=== PATIENT | male | born 1975 | race Caucasian/White ===

== ENCOUNTER → 2019-12-19 14:03 | Outpatient (BNVA) | payer MEDICARE, MEDICAID, SELFPAY | PROVIDERS: Family Provider Internal Medicine; PCP Internal Medicine; Visit Provider Nurse Practitioner | DX: F33.1 Major depressive disorder, recurrent, moderate (principal); F43.12 Post-traumatic stress disorder, chronic; F40.11 Social phobia, generalized; F41.9 Anxiety disorder, unspecified; F40.298 Other specified phobia | CPT/HCPCS: 99203 ==

== ENCOUNTER → 2020-02-09 14:45 | Outpatient (BNVA) | payer MEDICARE, MEDICAID, SELFPAY | PROVIDERS: Family Provider Internal Medicine; PCP Internal Medicine; Visit Provider Nurse Practitioner | DX: F33.1 Major depressive disorder, recurrent, moderate (principal); F43.12 Post-traumatic stress disorder, chronic; F40.11 Social phobia, generalized; F41.9 Anxiety disorder, unspecified | CPT/HCPCS: 99213 ==

== ENCOUNTER → 2020-04-05 08:14 | Outpatient (BNVA) | payer MEDICARE, MEDICAID, SELFPAY | PROVIDERS: Family Provider Internal Medicine; PCP Internal Medicine; Visit Provider Nurse Practitioner | DX: F41.9 Anxiety disorder, unspecified (principal); F40.11 Social phobia, generalized; F43.12 Post-traumatic stress disorder, chronic; F33.1 Major depressive disorder, recurrent, moderate | CPT/HCPCS: 99213 ==

== ENCOUNTER → 2020-05-27 07:45 | Outpatient (BNVA) | payer MEDICARE, MEDICAID, SELFPAY | PROVIDERS: Family Provider Internal Medicine; PCP Internal Medicine; Visit Provider Nurse Practitioner | DX: F33.1 Major depressive disorder, recurrent, moderate (principal); F43.12 Post-traumatic stress disorder, chronic; F40.11 Social phobia, generalized; F41.9 Anxiety disorder, unspecified | CPT/HCPCS: 99213 ==

== ENCOUNTER → 2020-06-24 11:19 | Outpatient (BNVA) | payer MEDICARE, MEDICAID, SELFPAY | PROVIDERS: Family Provider Internal Medicine; PCP Internal Medicine; Visit Provider Nurse Practitioner | DX: F33.1 Major depressive disorder, recurrent, moderate (principal); F43.12 Post-traumatic stress disorder, chronic; F40.11 Social phobia, generalized; F41.9 Anxiety disorder, unspecified | CPT/HCPCS: 99213 ==

== ENCOUNTER → 2020-08-26 08:36 | Outpatient (BNVA) | payer MEDICARE, MEDICAID, SELFPAY | PROVIDERS: Family Provider Internal Medicine; PCP Internal Medicine; Visit Provider Nurse Practitioner | DX: F33.1 Major depressive disorder, recurrent, moderate (principal); F43.12 Post-traumatic stress disorder, chronic; F40.11 Social phobia, generalized; F41.9 Anxiety disorder, unspecified | CPT/HCPCS: 99213 ==

== ENCOUNTER → 2020-11-24 07:58 | Outpatient (BNVA) | payer MEDICARE, MEDICAID, SELFPAY | PROVIDERS: Family Provider Internal Medicine; PCP Internal Medicine; Visit Provider Nurse Practitioner | DX: F33.1 Major depressive disorder, recurrent, moderate (principal); F43.12 Post-traumatic stress disorder, chronic; F40.11 Social phobia, generalized | CPT/HCPCS: 99213 ==

== ENCOUNTER → 2021-02-23 08:40 | Outpatient (BNVA) | payer MEDICARE, MEDICAID, SELFPAY | PROVIDERS: Family Provider Internal Medicine; PCP Internal Medicine; Visit Provider Nurse Practitioner | DX: F33.1 Major depressive disorder, recurrent, moderate (principal); F43.12 Post-traumatic stress disorder, chronic; F40.11 Social phobia, generalized | CPT/HCPCS: 99214 ==

== ENCOUNTER → 2021-05-18 07:41 | Outpatient (BNVA) | payer MEDICARE, MEDICAID, SELFPAY | PROVIDERS: Family Provider Internal Medicine; PCP Internal Medicine; Visit Provider Nurse Practitioner | DX: F43.12 Post-traumatic stress disorder, chronic (principal); F33.1 Major depressive disorder, recurrent, moderate; F40.11 Social phobia, generalized | CPT/HCPCS: 99214 ==

== ENCOUNTER → 2021-08-17 07:45 | Outpatient (BNVA) | payer MEDICARE, MEDICAID, SELFPAY | PROVIDERS: Family Provider Internal Medicine; PCP Internal Medicine; Visit Provider Nurse Practitioner | DX: F43.12 Post-traumatic stress disorder, chronic (principal); F33.1 Major depressive disorder, recurrent, moderate; F40.11 Social phobia, generalized | CPT/HCPCS: 99214 ==

== ENCOUNTER → 2021-09-28 07:36 | Outpatient (BNVA) | payer MEDICARE, MEDICAID, SELFPAY | PROVIDERS: Family Provider Internal Medicine; PCP Internal Medicine; Visit Provider Nurse Practitioner | DX: F43.12 Post-traumatic stress disorder, chronic (principal); F33.1 Major depressive disorder, recurrent, moderate; F40.11 Social phobia, generalized | CPT/HCPCS: 99214 ==

== ENCOUNTER → 2021-11-14 14:17 | Outpatient (BNVA) | payer MEDICARE, MEDICAID, SELFPAY | PROVIDERS: Family Provider Internal Medicine; PCP Internal Medicine; Visit Provider Podiatrist Foot & Ankle Surgery | DX: M79.672 Pain in left foot (principal); Z89.422 Acquired absence of other left toe(s); M77.32 Calcaneal spur, left foot; Z46.89 Encounter for fitting and adjustment of other specified devices; L97.529 Non-pressure chronic ulcer of other part of left foot with unspecified severity; E11.621 Type 2 diabetes mellitus with foot ulcer; L97.522 Non-pressure chronic ulcer of other part of left foot with fat layer exposed; E11.42 Type 2 diabetes mellitus with diabetic polyneuropathy | CPT/HCPCS: 73630; 97760; L4361 ==

== ENCOUNTER 2021-11-14 15:48 | Outpatient (CLI) | payer MEDICARE, MEDICAID, SELFPAY | END 2021-11-14 15:49 | disposition home or self-care (01) | LOC: SPT 15:49 | PROVIDERS: Family Provider Internal Medicine; PCP Internal Medicine; Visit Provider Podiatrist Foot & Ankle Surgery | DX: Z46.89 Encounter for fitting and adjustment of other specified devices (principal); L97.529 Non-pressure chronic ulcer of other part of left foot with unspecified severity | CPT/HCPCS: 97760; L4361 ==

== ENCOUNTER → 2021-12-28 07:40 | Outpatient (BNVA) | payer MEDICARE, MEDICAID, SELFPAY | PROVIDERS: Family Provider Internal Medicine; PCP Internal Medicine; Visit Provider Nurse Practitioner | DX: F43.12 Post-traumatic stress disorder, chronic (principal); F33.1 Major depressive disorder, recurrent, moderate; F40.11 Social phobia, generalized | CPT/HCPCS: 99214 ==

== ENCOUNTER → 2022-03-22 07:19 | Outpatient (BNVA) | payer MEDICARE, MEDICAID, SELFPAY | PROVIDERS: Family Provider Internal Medicine; PCP Internal Medicine; Visit Provider Nurse Practitioner | DX: F43.12 Post-traumatic stress disorder, chronic (principal); F33.1 Major depressive disorder, recurrent, moderate; F40.11 Social phobia, generalized | CPT/HCPCS: 99214 ==

== ENCOUNTER → 2022-04-18 13:32 | Outpatient (BNVA) | payer MEDICARE, MEDICAID, SELFPAY | PROVIDERS: Family Provider Internal Medicine; PCP Internal Medicine; Visit Provider Podiatrist Foot & Ankle Surgery | DX: L60.3 Nail dystrophy (principal); L84 Corns and callosities; Q66.71 Congenital pes cavus, right foot; Q66.72 Congenital pes cavus, left foot; E11.42 Type 2 diabetes mellitus with diabetic polyneuropathy | CPT/HCPCS: 11056; 11721 ==

== ENCOUNTER → 2022-06-20 13:31 | Outpatient (BNVA) | payer MEDICARE, MEDICAID, SELFPAY | PROVIDERS: Family Provider Internal Medicine; PCP Internal Medicine; Visit Provider Podiatrist Foot & Ankle Surgery | DX: Q66.70 Congenital pes cavus, unspecified foot (principal); L60.3 Nail dystrophy; L84 Corns and callosities; E11.42 Type 2 diabetes mellitus with diabetic polyneuropathy | CPT/HCPCS: 11056; 11721 ==

== ENCOUNTER → 2022-10-03 10:53 | Outpatient (BNVA) | payer MEDICARE, MEDICAID, SELFPAY | PROVIDERS: Family Provider Internal Medicine; PCP Internal Medicine; Visit Provider Podiatrist Foot & Ankle Surgery | DX: E11.42 Type 2 diabetes mellitus with diabetic polyneuropathy (principal); L60.3 Nail dystrophy; L84 Corns and callosities; Z79.84 Long term (current) use of oral hypoglycemic drugs; Z79.4 Long term (current) use of insulin; M21.179 Varus deformity, not elsewhere classified, unspecified ankle | CPT/HCPCS: 11056; 11721 ==

== ENCOUNTER → 2022-11-21 13:08 | Outpatient (BNVA) | payer MEDICARE, MEDICAID, SELFPAY | PROVIDERS: Family Provider Internal Medicine; PCP Internal Medicine; Visit Provider Podiatrist Foot & Ankle Surgery | DX: E11.42 Type 2 diabetes mellitus with diabetic polyneuropathy (principal); L84 Corns and callosities; Q66.72 Congenital pes cavus, left foot; Q66.71 Congenital pes cavus, right foot; Z79.84 Long term (current) use of oral hypoglycemic drugs; Z79.4 Long term (current) use of insulin | CPT/HCPCS: 11056; 11721 ==

== ENCOUNTER → 2023-01-24 11:00 | Outpatient (BNVA) | payer MEDICARE, MEDICAID, SELFPAY | PROVIDERS: Family Provider Internal Medicine; PCP Internal Medicine; Visit Provider Podiatrist Foot & Ankle Surgery | DX: E11.42 Type 2 diabetes mellitus with diabetic polyneuropathy (principal); Q66.72 Congenital pes cavus, left foot; Q66.71 Congenital pes cavus, right foot; Z79.84 Long term (current) use of oral hypoglycemic drugs; Z79.4 Long term (current) use of insulin; L60.3 Nail dystrophy; L84 Corns and callosities | CPT/HCPCS: 11056; 11721 ==

== ENCOUNTER → 2023-03-06 14:30 | Outpatient (BNVA) | payer MEDICARE, MEDICAID, SELFPAY | PROVIDERS: Family Provider Internal Medicine; PCP Internal Medicine; Visit Provider Podiatrist Foot & Ankle Surgery | DX: E11.42 Type 2 diabetes mellitus with diabetic polyneuropathy (principal); L60.3 Nail dystrophy; L84 Corns and callosities; Q66.72 Congenital pes cavus, left foot; Q66.71 Congenital pes cavus, right foot; Z79.4 Long term (current) use of insulin; Z79.84 Long term (current) use of oral hypoglycemic drugs | CPT/HCPCS: 11056; 11721 ==

== ENCOUNTER → 2023-03-19 13:30 | Outpatient (BNVA) | payer MEDICARE, MEDICAID, OTHER, SELFPAY | PROVIDERS: Family Provider Internal Medicine; PCP Internal Medicine; Visit Provider Nurse Practitioner | DX: Z79.899 Other long term (current) drug therapy (principal) | CPT/HCPCS: 80061 ==

== ENCOUNTER → 2023-04-17 14:38 | Outpatient (BNVA) | payer MEDICARE, MEDICAID, OTHER, SELFPAY | PROVIDERS: Family Provider Internal Medicine; PCP Internal Medicine; Visit Provider Podiatrist Foot & Ankle Surgery | DX: E11.8 Type 2 diabetes mellitus with unspecified complications (principal); E11.42 Type 2 diabetes mellitus with diabetic polyneuropathy; L60.3 Nail dystrophy; L84 Corns and callosities; Q66.72 Congenital pes cavus, left foot; Q66.71 Congenital pes cavus, right foot; Z79.84 Long term (current) use of oral hypoglycemic drugs; Z79.4 Long term (current) use of insulin | CPT/HCPCS: 11057; 11721 ==

== ENCOUNTER → 2023-06-26 13:46 | Outpatient (BNVA) | payer MEDICARE, MEDICAID, SELFPAY | PROVIDERS: Family Provider Internal Medicine; PCP Internal Medicine; Visit Provider Podiatrist Foot & Ankle Surgery | DX: E11.42 Type 2 diabetes mellitus with diabetic polyneuropathy; L60.3 Nail dystrophy; L84 Corns and callosities; M21.171 Varus deformity, not elsewhere classified, right ankle; M21.172 Varus deformity, not elsewhere classified, left ankle; Z79.84 Long term (current) use of oral hypoglycemic drugs; Z79.4 Long term (current) use of insulin | CPT/HCPCS: 11056; 11721 ==

== ENCOUNTER → 2023-08-22 14:10 | Outpatient (BNVA) | payer MEDICARE, MEDICAID, SELFPAY | PROVIDERS: Family Provider Internal Medicine; PCP Internal Medicine; Visit Provider Podiatrist Foot & Ankle Surgery | DX: E11.42 Type 2 diabetes mellitus with diabetic polyneuropathy; L60.3 Nail dystrophy; L84 Corns and callosities; Q66.72 Congenital pes cavus, left foot; Q66.71 Congenital pes cavus, right foot; Z79.84 Long term (current) use of oral hypoglycemic drugs; Z79.4 Long term (current) use of insulin | CPT/HCPCS: 11056; 11721 ==

== ENCOUNTER → 2023-12-19 13:51 | Outpatient (BNVA) | payer MEDICARE, MEDICAID, SELFPAY | PROVIDERS: Family Provider Internal Medicine; PCP Internal Medicine; Visit Provider Podiatrist Foot & Ankle Surgery | DX: E11.42 Type 2 diabetes mellitus with diabetic polyneuropathy; L60.3 Nail dystrophy; L97.522 Non-pressure chronic ulcer of other part of left foot with fat layer exposed; L84 Corns and callosities; E11.621 Type 2 diabetes mellitus with foot ulcer; Z79.4 Long term (current) use of insulin; Z79.84 Long term (current) use of oral hypoglycemic drugs | CPT/HCPCS: 11042; 11056; 11721 ==

== ENCOUNTER → 2023-12-27 13:01 | Outpatient (BNVA) | payer MEDICARE, MEDICAID, SELFPAY | PROVIDERS: Family Provider Internal Medicine; PCP Internal Medicine; Visit Provider Thoracic Surgery (Cardiothoracic Vascular Surgery) | DX: E11.52 Type 2 diabetes mellitus with diabetic peripheral angiopathy with gangrene (principal); E11.621 Type 2 diabetes mellitus with foot ulcer; L97.421 Non-pressure chronic ulcer of left heel and midfoot limited to breakdown of skin | CPT/HCPCS: 97597; 99213 ==

== ENCOUNTER → 2024-01-10 10:33 | Outpatient (BNVA) | payer MEDICARE, MEDICAID, SELFPAY | PROVIDERS: Family Provider Internal Medicine; PCP Internal Medicine; Visit Provider Thoracic Surgery (Cardiothoracic Vascular Surgery) | DX: E11.52 Type 2 diabetes mellitus with diabetic peripheral angiopathy with gangrene (principal); E11.621 Type 2 diabetes mellitus with foot ulcer; L97.511 Non-pressure chronic ulcer of other part of right foot limited to breakdown of skin | CPT/HCPCS: 97597; A6212 ==

== ENCOUNTER → 2024-01-15 15:05 | Outpatient (BNVA) | payer MEDICARE, MEDICAID, SELFPAY | PROVIDERS: Family Provider Internal Medicine; PCP Internal Medicine; Visit Provider Thoracic Surgery (Cardiothoracic Vascular Surgery) | DX: E11.52 Type 2 diabetes mellitus with diabetic peripheral angiopathy with gangrene (principal); E11.621 Type 2 diabetes mellitus with foot ulcer; L97.521 Non-pressure chronic ulcer of other part of left foot limited to breakdown of skin | CPT/HCPCS: 97597; A6212 ×2 ==

== ENCOUNTER → 2024-01-17 09:59 | Outpatient (BNVA) | payer MEDICARE, MEDICAID, SELFPAY | PROVIDERS: Family Provider Internal Medicine; PCP Internal Medicine; Visit Provider Thoracic Surgery (Cardiothoracic Vascular Surgery) | DX: E11.52 Type 2 diabetes mellitus with diabetic peripheral angiopathy with gangrene (principal); E11.621 Type 2 diabetes mellitus with foot ulcer; L97.521 Non-pressure chronic ulcer of other part of left foot limited to breakdown of skin | CPT/HCPCS: 29445; A6210 ==

== ENCOUNTER → 2024-01-22 13:19 | Outpatient (BNVA) | payer MEDICARE, MEDICAID, SELFPAY | PROVIDERS: Family Provider Internal Medicine; PCP Internal Medicine; Visit Provider Thoracic Surgery (Cardiothoracic Vascular Surgery) | DX: E11.52 Type 2 diabetes mellitus with diabetic peripheral angiopathy with gangrene (principal); E11.621 Type 2 diabetes mellitus with foot ulcer; L97.521 Non-pressure chronic ulcer of other part of left foot limited to breakdown of skin | CPT/HCPCS: 97597 ==

== ENCOUNTER → 2024-01-31 14:41 | Outpatient (BNVA) | payer MEDICARE, MEDICAID, SELFPAY | PROVIDERS: Family Provider Internal Medicine; PCP Internal Medicine; Visit Provider Podiatrist Foot & Ankle Surgery | DX: L97.522 Non-pressure chronic ulcer of other part of left foot with fat layer exposed (principal); E11.621 Type 2 diabetes mellitus with foot ulcer; E11.42 Type 2 diabetes mellitus with diabetic polyneuropathy; M21.6X2 Other acquired deformities of left foot; M77.42 Metatarsalgia, left foot; M24.572 Contracture, left ankle; Z79.4 Long term (current) use of insulin; Z79.84 Long term (current) use of oral hypoglycemic drugs | CPT/HCPCS: 73630; 99214 ==

== ENCOUNTER 2024-02-08 09:16 | Day surgery (SDC) | payer MEDICARE, MEDICAID, SELFPAY ==
[2024-02-08] VITALS (7 sets, daily range): BP systolic 93–152; BP diastolic 67–87; PULSE 69–90; RESP 14–16; TEMP 36.1–36.4; O2SAT 95–100; BMI 34.5
[2024-02-08] MEDS: sodium chloride 0.9% 1,000 ML 30 ML IV (09:53)
[2024-02-08 10:00] LABS: Glucose Point of Care 89 mg/dL (70-110)
--- NOTE | 2024-02-08 10:03 | P.ANESASSM_ITS ---
Pre-Anesthetic Assessment Height/Weight: Height 1.93 m Weight 128.82 kg Temp Pulse Resp BP Pulse Ox O2 Del Method 97.6 F 69 16 152/81 100 Room Air 02/08/24 09:29 02/08/24 09:29 02/08/24 09:29 02/08/24 09:29 02/08/24 09:29 02/08/24 09:30 Preop Diagnosis: Left forefoot and ankle equinus Operation Date: 02/08/24 10:10 Proposed Procedures p Tendon Lengthening Foot/ Left Achilles lengthening, Left posterior tibial tendon lengthening(Left) - Byron Argueta DPM s Metatarsal Osteotomy/ Floating osteotomy left fourth metatarsal(Left) - Byron Argueta DPM Familial anesthetic complications: None Was Beta Lou taken within 24 hours: N/A Was Clonidine taken within 24 hours: N/A Last intake: Intake Last Liquid Date 02/07/24 Last Liquid Time 21:00 Last Solid Date 02/07/24 Last Solid Time 18:00 Social No alcohol and No tobacco Exam alert, oriented x 3, clear to auscultation bilaterally and regular rate & rhythm Airway Mallampati: Class III Dentition: full Comments: Comments: large tongue and neck circumference CV/HEM Hypertension GI Gastroesophageal Reflux Disease Metabolic Diabetes Mellitus Anesthetic Plan ASA status: 3 Anesthesia: Choice Risk of > 500 ml blood loss (7ml/kg in children): No Medications/Allergies Home Medications Medication Instructions Recorded Confirmed Last Taken Type losartan 50 mg tablet 50 mg PO DAILY 12/19/19 02/07/24 02/07/24 History metformin 500 mg tablet 1,000 mg PO BID 12/19/19 02/07/24 02/07/24 History pantoprazole 40 mg tablet,delayed 40 mg PO .QHS 12/19/19 02/07/24 02/07/24 History release (Protonix) insulin aspart U-100 100 unit/mL See Rx Instructions SUBCUT TID 06/23/20 02/07/24 02/06/24 History (3 mL) subcutaneous pen (Novolog FlexPen U-100 Insulin aspart) insulin degludec 200 unit/mL (3 96 unit SUBCUT DAILY 06/23/20 02/07/24 02/06/24 History mL) subcutaneous pen (Tresiba FlexTouch U-200 insulin) Diabetic shoes with 3 inserts #1 ea 07/06/21 01/31/24 Unknown Rx mupirocin 2 % topical ointment 1 applic topical BID 2 weeks #22 03/06/23 02/07/24 02/06/24 Rx grams Diabetic shoes #1 ea 08/22/23 01/31/24 Unknown Rx aripiprazole 15 mg tablet (Abilify) 15 mg PO DAILY #30 tabs 12/20/23 02/07/24 02/07/24 Rx duloxetine 60 mg capsule,delayed 120 mg (2 x 60 mg) PO .QHS #60 caps 12/20/23 02/07/24 02/07/24 Rx release (Cymbalta) Allergies Allergy/AdvReac Type Severity Reaction Status Date / Time acetaminophen [Vicodin] Allergy Unknown rash Verified 02/08/24 09:25 aspirin Allergy Unknown swelling Verified 02/08/24 09:25 of throat cephalexin [From Keflex] Allergy Unknown nausea Verified 02/08/24 09:25 erythromycin base Allergy Unknown Unknown Verified 02/08/24 09:25 hydrocodone [Vicodin] Allergy Unknown rash Verified 02/08/24 09:25 penicillamine Allergy Unknown hives Verified 02/08/24 09:25 Current Medications Generic Name Dose Route Start Last Admin Trade Name Freq PRN Reason Stop Dose Admin Sodium Chloride 1,000 mls @ 30 mls/hr 02/08/24 09:30 02/08/24 09:53 Sodium Chloride 0.9% IV 02/09/24 09:29 30 mls/hr .Q24H ADAM Administration PFSH Anesthesia Medical History Psychiatric care Osteomyelitis of left foot Anxiety disorder, unspecified Social phobia, generalized Post-traumatic stress disorder, chronic Major depressive disorder, recurrent, moderate Surgical History History of amputation of foot through metatarsal bone Social History Smoking and tobacco/nicotine status: never used tobacco/nicotine Data Anesthesia 02/08/24 09:45 Cardiac Studies: 2 No Data to Display
[2024-02-08 10:33] LABS: Anion Gap 13.3 (5-19); Blood Urea Nitrogen 17 mg/dL (6-20); Calcium 9.3 mg/dL (8.5-10.5); Carbon Dioxide 27 mmol/L (22-29); Chloride 100 mmol/L (98-107); Creatinine Clr Calc Pharmacy 148.6967; Glomerular Filtration Rate 90.4 mL/min (90-130); Glucose 95 mg/dL (65-115); Osmolality Calculated 283 mOsm/kg (285-295); Potassium 4.3 mmol/L (3.5-5.1); Sodium 136 mmol/L (136-145)
--- NOTE | 2024-02-08 10:38 | W.PM.OPSUD ---
Surgery/Procedure H&P Update DATE OF PROCEDURE: February 08, 2024 DATE H&P PERFORMED: 01/31/24 H&P UPDATE INFORMATION: I have reviewed H&P completed within last 30 days, I have examined patient prior to procedure, No changes to prior documentation and H&P is in [facility] EMR on date indicated PREOP DIAGNOSIS: Left forefoot and ankle equinus PLANNED PROCEDURE: Operation Date: 02/08/24 10:10 Proposed Procedures p Tendon Lengthening Foot/ Left Achilles lengthening, Left posterior tibial tendon lengthening(Left) - Byron Argueta DPM s Metatarsal Osteotomy/ Floating osteotomy left fourth metatarsal(Left) - Byron Argueta DPM
[2024-02-08] MEDS: clindamycin 600 MG/50 ML PREMIX 100 MG IV (10:51)
[2024-02-08] MEDS: BUPivacaine 0.5% INJ 30 mL 20 ML XX (10:58)
[2024-02-08] MEDS: lidocaine 2% INJ 20 mL INJECTION (10:58)
--- NOTE | 2024-02-08 11:42 | P.OP_ITS ---
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 CPT code 75157 2) left posterior tibial tendon lengthening. CPT code 54722 diagnosis: 3) floating osteotomy left fourth metatarsal. CPT code 88007 Implants: #2 FiberWire 3-0 Vicryl, 4-0 Vicryl, 4-0 nylon Specimens removed/disposition: None Pathology: None Surgeon: Byron Argueta DPM Automotive Accessory Installer: Farnaz Estimated blood loss: 5 31 IV fluids: 0 Urine output: 0 Complications: None Brief History: Patient examined and evaluated, findings and treatment options discussed with patient and his mother at length. He has a progression of deformity of the left forefoot, he has a history of partial fifth ray amputation and now subsequent transfer pressure and fourth metatarsal overload he has a forefoot equinus, history of wound subfourth metatarsal head left foot with difficulty healing, recently epithelialized and like to discuss surgical offloading as a means of potential wound prevention, patient has ankle equinus to the left with Achilles contracture and forefoot varus driven by posterior tibial tendon. I proposed left tendo Achilles lengthening, posterior tibial tendon lengthening and fourth metatarsal floating osteotomy. I reviewed at length with the patient, the risks, potential complications, benefits, alternatives, expectations, and typical outcomes associated with the surgery. The risks and potential complications were explained in detail, including but not limited to infection, wound dehiscence or soft tissue complications, bleeding and hematoma, chronic edema, neuritis or nerve damage producing numbness or chronic pain, CRPS, failure to relieve pain or worsening pain, thick / painful / unsightly scar, limited motion / stiffness, malposition, delayed union, malunion, or nonunion, fracture, reaction to implants, anesthetic complications, venous thromboembolism, and deformity recurrence. I discussed the notion of no regrets with the patient as it pertains to complications and outcomes. The patient seemed to understand the nature of the proposed care and required convalescence. They asked appropriate questions, answered to their satisfaction. They are aware no guarantees can be made as to a satisfactory outcome and they understand there may be other possible unforeseen complications or outcomes not listed here that will be treated accordingly if they arise. There were no written or implied guarantees given to the patient. They gave informed consent to proceed. Also risk of Achilles tendon rupture, posterior tibial tendon rupture, risk for transfer to pressure after surgical offloading and new wound formation adjacent to current wound. Patient and mother are agreeable and wished to proceed. Procedure: Under mild sedation patient was brought to the operating room and remained on the gurney in supine position. A timeout was performed. Anesthesia was then administered by the anesthesia service. Local anesthesia was injected by myself consisting of 30 cc of one-to-one mixture 1% lidocaine and 0.5 sent Marcaine plain in a V-block proximal to the left Achilles watershed zone and left ankle block fashion. Well-padded pneumatic tourniquet applied to the left high calf. Left lower extremity was scrubbed, prepped and draped utilizing normal aseptic technique. Left lower extremities then exanguinated with an Esmarch bandage and tourniquet inflated to 250 mmHg. Attention was directed to the left ankle where dorsiflexion was to neutral. Percutaneous triple hemisection Achilles tenotomy was performed utilizing 15 blade with excellent lengthening appreciated the Achilles tendon that remained intact post lengthening, was able to dorsiflex approximately 8 degrees post lengthening. Percutaneous incision x 3 was irrigated with saline solution and closed with 4-0 nylon. This was then covered with an OpSite. This was a Mitali style triple hemisection percutaneous lengthening. Attention was then directed to the left instep where a incision directly over the posterior tibial tendon near its insertion at the navicular was performed through skin with dissection carried down carefully through subcutaneous tissue to the layer of synovial sheath of the posterior tibial tendon. Care was taken to retract and preserve neurovascular and tendinous structures. All bleeders were ligated and cauterized as necessary. A linear incision was performed over the tendon sheath exposing the posterior tibial tendon which then was lengthened via Z-plasty and reinforced with #2 FiberWire. Upon lengthening of the posterior tibial tendon the forefoot varus deformity was able to be reduced to neutral and a more rectus alignment appreciated intraoperatively within the transverse plane. The incision was irrigated with saline solution, tendon sheath was reapproximated with 3-0 Vicryl. Retinaculum was reapproximated 3-0 Vicryl, subcutaneous tissue reapproximated 4-0 Vicryl and skin with 4-0 nylon. Attention was then directed to the left dorsal foot where the fourth metatarsal was palpated. Directly over the fourth metatarsal distal diaphysis a incision was performed through skin full-thickness down to bone and Hohmann retractors on medial and lateral portions of the fourth metatarsal distal diaphysis was isolated and transected utilizing a sagittal saw allowing a floating osteotomy to offload the fourth metatarsal head that had contributed to wound formation plantarly. The incision was irrigated with saline solution and closed with 4-0 nylon at skin. All incisions were dressed with Adaptic, sterile 4 x 4's, Kerlix, Tommy wrap followed by application of a well-padded multilayer posterior compressive splint. Tourniquet was deflated and a prompt hyperemic response was noted to the distal digits of the left foot. Patient tolerated the procedure and anesthesia well and was transferred to the PACU with vital signs stable and vascular status intact. Following a period of postoperative monitoring he will be discharged home is to remain strict nonweightbearing and elevate left foot while resting. Was given at home care instructions, scheduled follow-up and my cell phone number to contact with any postoperative questions or concerns.
--- NOTE | 2024-02-08 11:43 | W.PM.BPON ---
Date of Procedure: 02/01/24 Surgeon: Byron Argueta DPM Supervisor Putty And Caluking(s): Farnaz Procedure(s) performed: Left Achilles lengthening and posterior tibial tendon lengthening and following osteotomy of the left fourth metatarsal Findings of the procedure(s): None Estimated blood loss: 2 mL Specimen(s) removed: No specimens Post-operative diagnosis: Ankle equinus, forefoot varus and metatarsalgia all left lower extremity No complications with anesthesia or surgery
--- NOTE | 2024-02-08 12:40 | ANE.PACU2 ---
Inpatient post-anesthesia follow up: Airway intact: Yes Vital signs: Temperature 97.0 F Pulse Rate 72 Respiratory Rate 16 Blood Pressure 131/78 Pulse Oximetry 96 Oxygen Delivery Me thod Room Air Oxygen Flow Rate Fraction of Inspir ed Oxygen Hydration adequate: Yes Nausea and vomiting: No Pain level: 1 Mental status: Baseline
== END 2024-02-08 12:41 | disposition home or self-care (01) ==
PROVIDERS: Family Provider Internal Medicine; PCP Internal Medicine; Visit Provider Podiatrist Foot & Ankle Surgery
PROC: (CPT 28261; principal; 2024-02-08 10:00)
PROC: (CPT 27685; 2024-02-08 10:00)
DX: M21.6X2 Other acquired deformities of left foot (principal); M77.42 Metatarsalgia, left foot; M24.572 Contracture, left ankle; I10 Essential (primary) hypertension; K21.9 Gastro-esophageal reflux disease without esophagitis; E11.9 Type 2 diabetes mellitus without complications; Z79.84 Long term (current) use of oral hypoglycemic drugs
CPT/HCPCS: 27685 ×2; 28306; 36415; 36416; 80048; 82962; J2250; J2704; J3010; J3490; J7030

== ENCOUNTER → 2024-02-21 14:33 | Outpatient (BNVA) | payer MEDICARE, MEDICAID, SELFPAY | PROVIDERS: Family Provider Internal Medicine; PCP Internal Medicine; Visit Provider Podiatrist Foot & Ankle Surgery | DX: E11.42 Type 2 diabetes mellitus with diabetic polyneuropathy (principal); M21.6X2 Other acquired deformities of left foot; M77.42 Metatarsalgia, left foot; M24.572 Contracture, left ankle | CPT/HCPCS: 99024 ==

== ENCOUNTER → 2024-02-26 13:31 | Outpatient (BNVA) | payer MEDICARE, MEDICAID, SELFPAY | PROVIDERS: Family Provider Internal Medicine; PCP Internal Medicine; Visit Provider Podiatrist Foot & Ankle Surgery | DX: Z98.890 Other specified postprocedural states (principal) | CPT/HCPCS: 99024 ==

== ENCOUNTER → 2024-03-13 12:34 | Outpatient (BNVA) | payer MEDICARE, MEDICAID, SELFPAY | PROVIDERS: Family Provider Internal Medicine; PCP Internal Medicine; Visit Provider Podiatrist Foot & Ankle Surgery | DX: Z98.890 Other specified postprocedural states (principal) | CPT/HCPCS: 99024 ==

== ENCOUNTER 2024-03-13 13:38 | Outpatient (CLI) | payer MEDICARE, MEDICAID, SELFPAY | END 2024-03-13 13:39 | disposition home or self-care (01) | LOC: SPT 13:40 | PROVIDERS: Family Provider Internal Medicine; PCP Internal Medicine; Visit Provider Podiatrist Foot & Ankle Surgery | DX: Z47.89 Encounter for other orthopedic aftercare (principal) | CPT/HCPCS: L4361 ==

== ENCOUNTER → 2024-04-03 13:17 | Outpatient (BNVA) | payer MEDICARE, MEDICAID, SELFPAY | PROVIDERS: Family Provider Internal Medicine; PCP Internal Medicine; Visit Provider Podiatrist Foot & Ankle Surgery | DX: Z98.890 Other specified postprocedural states (principal) | CPT/HCPCS: 99024 ==

== ENCOUNTER → 2024-06-04 13:00 | Outpatient (BNVA) | payer MEDICARE, MEDICAID, SELFPAY | PROVIDERS: Family Provider Internal Medicine; PCP Internal Medicine; Visit Provider Podiatrist Foot & Ankle Surgery | DX: E11.42 Type 2 diabetes mellitus with diabetic polyneuropathy (principal); Z89.439 Acquired absence of unspecified foot; L84 Corns and callosities; Q66.72 Congenital pes cavus, left foot; L60.3 Nail dystrophy; Z79.84 Long term (current) use of oral hypoglycemic drugs; Z79.4 Long term (current) use of insulin | CPT/HCPCS: 11056; 11721 ==

== ENCOUNTER → 2024-08-20 13:48 | Outpatient (BNVA) | payer MEDICARE, MEDICAID, SELFPAY ==
[2024-08-19 15:30] VITALS: BP 117/69; BMI 33.1
== END ==
PROVIDERS: Family Provider Internal Medicine; PCP Internal Medicine; Visit Provider Podiatrist Foot & Ankle Surgery
DX: E11.42 Type 2 diabetes mellitus with diabetic polyneuropathy (principal); L84 Corns and callosities; L60.3 Nail dystrophy; Q66.72 Congenital pes cavus, left foot; Z79.4 Long term (current) use of insulin; Z79.84 Long term (current) use of oral hypoglycemic drugs
CPT/HCPCS: 11056; 11721

== ENCOUNTER → 2024-10-07 15:18 | Outpatient (BNVA) | payer MEDICARE, MEDICAID, SELFPAY ==
[2024-08-19 15:30] VITALS: BP 117/69; BMI 33.1
== END ==
PROVIDERS: Family Provider Internal Medicine; PCP Internal Medicine; Visit Provider Podiatrist Foot & Ankle Surgery
DX: E11.42 Type 2 diabetes mellitus with diabetic polyneuropathy (principal); L97.512 Non-pressure chronic ulcer of other part of right foot with fat layer exposed; L97.522 Non-pressure chronic ulcer of other part of left foot with fat layer exposed
CPT/HCPCS: 87070; 87075; 87205

== ENCOUNTER → 2024-10-21 07:26 | Outpatient (BNVA) | payer MEDICARE, MEDICAID, SELFPAY ==
[2024-08-19 15:30] VITALS: BP 117/69; BMI 33.1
== END ==
PROVIDERS: Family Provider Internal Medicine; PCP Internal Medicine; Visit Provider Podiatrist Foot & Ankle Surgery
DX: E11.42 Type 2 diabetes mellitus with diabetic polyneuropathy (principal); L97.512 Non-pressure chronic ulcer of other part of right foot with fat layer exposed; E11.621 Type 2 diabetes mellitus with foot ulcer; Z79.4 Long term (current) use of insulin; Z79.84 Long term (current) use of oral hypoglycemic drugs
CPT/HCPCS: 11042

== ENCOUNTER → 2024-11-04 12:32 | Outpatient (BNVA) | payer MEDICARE, MEDICAID, SELFPAY ==
[2024-08-19 15:30] VITALS: BP 117/69; BMI 33.1
== END ==
PROVIDERS: Family Provider Internal Medicine; PCP Internal Medicine; Visit Provider Podiatrist Foot & Ankle Surgery
DX: E11.42 Type 2 diabetes mellitus with diabetic polyneuropathy (principal); L97.512 Non-pressure chronic ulcer of other part of right foot with fat layer exposed; E11.621 Type 2 diabetes mellitus with foot ulcer; Z79.4 Long term (current) use of insulin; Z79.84 Long term (current) use of oral hypoglycemic drugs
CPT/HCPCS: 11042

== ENCOUNTER → 2024-11-26 14:13 | Outpatient (BNVA) | payer MEDICARE, MEDICAID, SELFPAY ==
[2024-08-19 15:30] VITALS: BP 117/69; BMI 33.1
== END ==
PROVIDERS: Family Provider Internal Medicine; PCP Internal Medicine; Visit Provider Podiatrist Foot & Ankle Surgery
DX: E11.42 Type 2 diabetes mellitus with diabetic polyneuropathy (principal); L97.512 Non-pressure chronic ulcer of other part of right foot with fat layer exposed; E11.621 Type 2 diabetes mellitus with foot ulcer; Z79.4 Long term (current) use of insulin; Z79.84 Long term (current) use of oral hypoglycemic drugs
CPT/HCPCS: 11042

== ENCOUNTER → 2024-12-17 13:17 | Outpatient (BNVA) | payer MEDICARE, MEDICAID, SELFPAY ==
[2024-08-19 15:30] VITALS: BP 117/69; BMI 33.1
== END ==
PROVIDERS: Family Provider Internal Medicine; PCP Internal Medicine; Visit Provider Podiatrist Foot & Ankle Surgery
DX: E11.42 Type 2 diabetes mellitus with diabetic polyneuropathy (principal); L97.512 Non-pressure chronic ulcer of other part of right foot with fat layer exposed; E11.621 Type 2 diabetes mellitus with foot ulcer; Z79.4 Long term (current) use of insulin; Z79.84 Long term (current) use of oral hypoglycemic drugs
CPT/HCPCS: 99213

== ENCOUNTER → 2025-03-18 12:46 | Outpatient (BNVA) | payer MEDICARE, MEDICAID, SELFPAY ==
[2024-08-19 15:30] VITALS: BP 117/69; BMI 33.1
== END ==
PROVIDERS: Family Provider Internal Medicine; PCP Internal Medicine; Visit Provider Podiatrist Foot & Ankle Surgery
DX: E11.42 Type 2 diabetes mellitus with diabetic polyneuropathy (principal); L60.3 Nail dystrophy; L84 Corns and callosities; M20.41 Other hammer toe(s) (acquired), right foot; M20.42 Other hammer toe(s) (acquired), left foot; Z79.4 Long term (current) use of insulin; Z79.84 Long term (current) use of oral hypoglycemic drugs
CPT/HCPCS: 11056; 11721; 99213

== ENCOUNTER → 2025-04-02 09:59 | Outpatient (BNVA) | payer MEDICARE, MEDICAID, SELFPAY ==
[2024-08-19 15:30] VITALS: BP 117/69; BMI 33.1
== END ==
PROVIDERS: Family Provider Internal Medicine; PCP Internal Medicine; Visit Provider Podiatrist Foot & Ankle Surgery
DX: M20.41 Other hammer toe(s) (acquired), right foot (principal); M20.42 Other hammer toe(s) (acquired), left foot; E11.42 Type 2 diabetes mellitus with diabetic polyneuropathy; Z79.4 Long term (current) use of insulin
CPT/HCPCS: 28010; 28011; J9999

== ENCOUNTER 2025-04-14 14:51 | Emergency (ER) | payer MEDICARE, MEDICAID, SELFPAY ==
[2024-08-19 15:30] VITALS: BP 117/69; BMI 33.1
--- NOTE | 2025-04-14 14:54 | XRR_ITS ---
PROCEDURE INFORMATION: Exam: XR Left Hand Exam date and time: 04/14/2025 2:56 PM Age: 49 years old Clinical indication: Injury or trauma; Other: Not specified; Blunt trauma (contusions or hematomas); Hand; Left; Injury details: Hurt lt middle finger TECHNIQUE: Imaging protocol: Radiologic exam of the left hand. Views: 3 or more views. COMPARISON: No relevant prior studies available. FINDINGS: Bones/joints: No acute fracture or dislocation is seen. No acute osseous or joint space abnormality. Soft tissues: Soft tissue swelling left 3rd or middle finger suggested. No soft tissue radiopaque foreign body or soft tissue gas. XR/XR hand LT min 3V* [id number] IMPRESSION: No fracture or acute osseous abnormality.
[2025-04-14 15:09] VITALS: BP 128/79; PULSE 80; RESP 17; TEMP 37; O2SAT 97; BMI 33.3
--- NOTE | 2025-04-14 15:42 | W.ED.UPPEXIN ---
HPI - Extremity Injury (Upper) General: Chief Complaint: Wound/Laceration Stated Complaint: LT hand injury Time Seen by Provider: 04/14/25 15:15 Source: patient and family Mode of arrival: wheelchair Limitations: no limitations History of Present Illness: Patient is a 49-year-old male who presents to ED today along with his mother for evaluation of a left finger wound/injury. According to patient, he had a blister to the distal tip of his left finger (unknown how long it had been there). He states about a week ago he fell and scuffed to the finger on the floor/ground which then caused the blister to rupture and slough. He now has open skin to the distal fingertip (middle finger) and mother feels like finger is swollen and slightly red. Patient states he is not having discomfort but mother states he has significant extremity neuropathy. No systemic symptoms. No fevers. His vital signs are stable upon arrival. MD complaint: injury to: left and finger Onset (ago): day(s) Other Extremity Injury: Left: fingers Place: home Severity: mild Relieving factors: none Exacerbating factors: none Context: fall, direct blow and other (wound) Associated symptoms: Reports no associated symptoms Treatments prior to arrival: bandage Related Data Home Medications ?Medication ?Instructions ?Recorded ?Confirmed losartan 50 mg tablet 50 mg PO DAILY 12/19/19 04/14/25 metformin 500 mg tablet 1,000 mg PO BID 12/19/19 04/14/25 pantoprazole 40 mg tablet,delayed 40 mg PO .QHS 12/19/19 04/14/25 release (Protonix) insulin aspart U-100 100 unit/mL See Rx Instructions SUBCUT TID 06/23/20 04/14/25 (3 mL) subcutaneous pen (Novolog FlexPen U-100 Insulin aspart) insulin degludec 200 unit/mL (3 96 unit SUBCUT DAILY 06/23/20 04/14/25 mL) subcutaneous pen (Tresiba FlexTouch U-200 insulin) Previous Rx's ?Medication ?Instructions ?Recorded Diabetic shoes with 3 inserts #1 ea 07/06/21 mupirocin 2 % topical ointment 1 applic topical BID 2 weeks #22 03/06/23 grams oxycodone 5 mg tablet 5 mg PO Q8H PRN pain #21 tabs 02/08/24 cam boot to left #1 ea 03/13/24 Diabetic shoes with custom #1 ea 08/20/24 accomadative insoles doxycycline hyclate 100 mg capsule 100 mg PO BID 14 days #28 caps 10/21/24 aripiprazole 15 mg tablet (Abilify) 15 mg PO DAILY #30 tabs 03/23/25 duloxetine 60 mg capsule,delayed 120 mg (2 x 60 mg) PO .QHS #60 caps 03/23/25 release (Cymbalta) sulfamethoxazole 800 1 tab PO BID 7 days #14 tabs 04/14/25 mg-trimethoprim 160 mg tablet (Bactrim DS) Allergies Allergy/AdvReac Type Severity Reaction Status Date / Time acetaminophen (Vicodin) Allergy Unknown rash Verified 04/14/25 14:13 aspirin Allergy Unknown swelling Verified 04/14/25 14:13 of throat cephalexin (From Keflex) Allergy Unknown nausea Verified 04/14/25 14:13 erythromycin base Allergy Unknown Unknown Verified 04/14/25 14:13 hydrocodone (Vicodin) Allergy Unknown rash Verified 04/14/25 14:13 penicillamine Allergy Unknown hives Verified 04/14/25 14:13 Review of Systems Const: Denies: fever(s), chills, body aches, fatigue or malaise Musc: Reports: extremity swelling (L middle finger); Denies: extremity pain, joint pain, joint swelling or joint redness Skin/Breast: Reports: other (open skin L middle finger) Neuro: Reports: other (chronic diabetic neuropathy) PFS ED PFSH: Medical History Psychiatric care Osteomyelitis of left foot Anxiety disorder, unspecified Social phobia, generalized Post-traumatic stress disorder, chronic Major depressive disorder, recurrent, moderate Surgical History History of amputation of foot through metatarsal bone Social History Smoking and tobacco/nicotine status: never used tobacco/nicotine Physical Exam Const: COMMON NORMALS: no acute distress, no limitations, alert and well nourished GENERAL APPEARANCE: cooperative Resp: COMMON NORMALS: normal respiratory effort and clear to auscultation bilaterally AUSCULTATION: clear to auscultation bilaterally Cardio: COMMON NORMALS: regular rate and regular rhythm RATE: regular rate RHYTHM: regular rhythm Extremity: COMMON NORMALS: full ROM and capillary refill normal GENERAL: Yes normal exam except as noted LEFT UPPER EXTREMITY: Yes hand & digits (pt has skin avulsion to distal L middle finger) Left hand and digits: Yes ROM (normal), Yes neurovascular exam (normal), Yes tendon exam (normal) and Yes other (mild edema to digit; mild erythema; no warmth/streaking) Neuro: COMMON NORMALS: moves all extremities, no focal motor deficits and no sensory deficits noted SENSORIUM/ORIENTATION: Yes alert Course Vital Signs: Vital signs: Vital Signs Temperature 98.6 F 04/14/25 15:09 Pulse Rate 80 04/14/25 15:09 Respiratory Rate 17 04/14/25 15:09 Blood Pressure 128/79 04/14/25 15:09 Pulse Oximetry 97 04/14/25 15:09 Oxygen Delivery Me thod Room Air 04/14/25 15:09 MDM - Extremity Injury (Upper) Medical Decision Making XR negative for fracture. No osteo. Here stating he had a blister to the distal L middle finger that completely sloughed/ruptured following a fall. He has skin avulsion/tissue loss to L middle finger distally. Normal nail. Mild edema/erythema. No evidence for deep space infection. No ischemic digit. Will place on oral antibiotics and have him start seeing wound care as this could take weeks/months to fully heal especially given his diabetic status. Medical Records I reviewed the patient's medical records. Lab Data Radiology Impressions Hand X-Ray 04/14/25 14:54 IMPRESSION: No fracture or acute osseous abnormality. All radiology interpretation(s) finalized by discharge Discharge Plan Discharge Patient Disposition: Home Clinical Impression: Open wound of left index finger Condition: Stable Prescriptions: New sulfamethoxazole-trimethoprim [Bactrim DS] 800-160 mg tablet 1 tab PO BID 7 Days Qty: 14 0RF No Action pantoprazole [Protonix] 40 mg tablet,delayed release (DR/EC) 40 mg PO .QHS losartan 50 mg tablet 50 mg PO DAILY metformin 500 mg tablet 1,000 mg PO BID insulin aspart U-100 [Novolog FlexPen U-100 Insulin] 100 unit/mL (3 mL) insulin pen See Rx Instructions SUBCUT TID Rx Instructions: sliding scale SUBCUT three times daily; Tresiba FlexTouch U-200 200 unit/mL (3 mL) insulin pen 96 unit SUBCUT DAILY mupirocin 2 % ointment 1 applic topical BID 14 Days Qty: 22 1RF (DME) cam boot to left See Rx Instructions .Route .MEDSUPPLY Qty: 1 0RF Rx Instructions: As directed (DME) Diabetic shoes with custom accomadative insoles See Rx Instructions .ROUTE .MEDSUPPLY Qty: 1 0RF Rx Instructions: PATIENT wears a SIZE 14 EXTRA WIDE doxycycline hyclate 100 mg capsule 100 mg PO BID 14 Days Qty: 28 0RF aripiprazole [Abilify] 15 mg tablet 15 mg PO DAILY Qty: 30 2RF duloxetine [Cymbalta] 60 mg capsule,delayed release(DR/EC) 120 mg PO .QHS Qty: 60 2RF (DME) Diabetic shoes with 3 inserts See Rx Instructions .Route .MEDSUPPLY Qty: 1 0RF Rx Instructions: As directed BY ELIZA&O oxycodone 5 mg tablet 5 mg PO Q8H PRN (Reason: pain) Qty: 21 0RF Discharge Orders: Discharge ED (Routine); Ordered 04/14/25 Ordered By: Bren Martin Referrals: Marguerite Reynolds FNP [Primary Care Provider, Unknown] Activity Restrictions/Additional Instructions: Please fill and start his antibiotics immediately. Continue to keep skin clean with warm soap and water. You may apply a Vaseline soaked gauze. Case management should contact you soon to help set you up with your follow-up wound care appointment. Print Language: Bolivian Coding Level of Care Code ED Employment Training Specialist for Ramez Romero
--- NOTE | 2025-04-16 08:30 | DCPLANNER ---
messaged wound care for er f/u
== END 2025-04-14 16:13 | disposition home or self-care (01) ==
PROVIDERS: Emergency Provider Physician Assistant; PCP Nurse Practitioner Family
DX: S61.201A Unspecified open wound of left index finger without damage to nail, initial encounter (principal); E11.40 Type 2 diabetes mellitus with diabetic neuropathy, unspecified; W19.XXXA Unspecified fall, initial encounter; Z79.899 Other long term (current) drug therapy; Z79.84 Long term (current) use of oral hypoglycemic drugs; Z79.4 Long term (current) use of insulin
CPT/HCPCS: 73130; 99213; 99283; A6446

== ENCOUNTER → 2025-04-20 13:59 | Outpatient (BNVA) | payer MEDICARE, MEDICAID, SELFPAY ==
[2024-08-19 15:30] VITALS: BP 117/69; BMI 33.1
== END ==
PROVIDERS: PCP Nurse Practitioner Family; Visit Provider Thoracic Surgery (Cardiothoracic Vascular Surgery)
DX: I96 Gangrene, not elsewhere classified (principal); L98.491 Non-pressure chronic ulcer of skin of other sites limited to breakdown of skin
CPT/HCPCS: 97597; 97598; 99213

== ENCOUNTER → 2025-04-27 13:14 | Outpatient (BNVA) | payer MEDICARE, MEDICAID, SELFPAY ==
[2024-08-19 15:30] VITALS: BP 117/69; BMI 33.1
== END ==
PROVIDERS: PCP Nurse Practitioner Family; Visit Provider Thoracic Surgery (Cardiothoracic Vascular Surgery)
DX: I96 Gangrene, not elsewhere classified (principal); S60.423D Blister (nonthermal) of left middle finger, subsequent encounter; W19.XXXD Unspecified fall, subsequent encounter
CPT/HCPCS: 97597

== ENCOUNTER → 2025-05-04 13:02 | Outpatient (BNVA) | payer MEDICARE, MEDICAID, SELFPAY ==
[2024-08-19 15:30] VITALS: BP 117/69; BMI 33.1
== END ==
PROVIDERS: PCP Nurse Practitioner Family; Visit Provider Thoracic Surgery (Cardiothoracic Vascular Surgery)
DX: I96 Gangrene, not elsewhere classified (principal); S60.423D Blister (nonthermal) of left middle finger, subsequent encounter; W19.XXXD Unspecified fall, subsequent encounter
CPT/HCPCS: 97597; A6021; A6446

== ENCOUNTER → 2025-05-11 13:13 | Outpatient (BNVA) | payer MEDICARE, MEDICAID, SELFPAY ==
[2024-08-19 15:30] VITALS: BP 117/69; BMI 33.1
== END ==
PROVIDERS: PCP Nurse Practitioner Family; Visit Provider Thoracic Surgery (Cardiothoracic Vascular Surgery)
DX: I96 Gangrene, not elsewhere classified (principal); S60.413D Abrasion of left middle finger, subsequent encounter; W19.XXXD Unspecified fall, subsequent encounter
CPT/HCPCS: 97597; A6446

== ENCOUNTER → 2025-05-18 13:05 | Outpatient (BNVA) | payer MEDICARE, MEDICAID, SELFPAY ==
[2024-08-19 15:30] VITALS: BP 117/69; BMI 33.1
== END ==
PROVIDERS: PCP Nurse Practitioner Family; Visit Provider Thoracic Surgery (Cardiothoracic Vascular Surgery)
DX: I96 Gangrene, not elsewhere classified (principal); S60.413D Abrasion of left middle finger, subsequent encounter; W19.XXXD Unspecified fall, subsequent encounter
CPT/HCPCS: 97597

== ENCOUNTER → 2025-05-25 12:58 | Outpatient (BNVA) | payer MEDICARE, MEDICAID, SELFPAY ==
[2024-08-19 15:30] VITALS: BP 117/69; BMI 33.1
== END ==
PROVIDERS: PCP Nurse Practitioner Family; Visit Provider Thoracic Surgery (Cardiothoracic Vascular Surgery)
DX: Z09 Encounter for follow-up examination after completed treatment for conditions other than malignant neoplasm (principal); Z87.2 Personal history of diseases of the skin and subcutaneous tissue
CPT/HCPCS: 99212

== ENCOUNTER → 2025-05-27 12:23 | Outpatient (BNVA) | payer MEDICARE, MEDICAID, SELFPAY ==
[2024-08-19 15:30] VITALS: BP 117/69; BMI 33.1
== END ==
PROVIDERS: PCP Nurse Practitioner Family; Visit Provider Podiatrist Foot & Ankle Surgery
DX: E11.42 Type 2 diabetes mellitus with diabetic polyneuropathy (principal); L60.3 Nail dystrophy; L84 Corns and callosities; M20.41 Other hammer toe(s) (acquired), right foot; M20.42 Other hammer toe(s) (acquired), left foot; Z79.84 Long term (current) use of oral hypoglycemic drugs; Z79.4 Long term (current) use of insulin
CPT/HCPCS: 11056; 11721

== ENCOUNTER → 2025-08-25 12:33 | Outpatient (BNVA) | payer MEDICARE, MEDICAID, SELFPAY ==
[2024-08-19 15:30] VITALS: BP 117/69; BMI 33.1
== END ==
PROVIDERS: PCP Nurse Practitioner Family; Visit Provider Podiatrist Foot & Ankle Surgery
DX: E11.42 Type 2 diabetes mellitus with diabetic polyneuropathy (principal); L60.3 Nail dystrophy; L84 Corns and callosities; E11.8 Type 2 diabetes mellitus with unspecified complications; M20.41 Other hammer toe(s) (acquired), right foot; M20.42 Other hammer toe(s) (acquired), left foot; Z79.4 Long term (current) use of insulin; Z79.84 Long term (current) use of oral hypoglycemic drugs
CPT/HCPCS: 11056; 11721